=== PATIENT | male | born 1995 | race Hispanic/Latino ===

== ENCOUNTER 2019-03-21 10:33 | Emergency (ER) | payer SELFPAY ==
--- NOTE | 2019-03-21 11:48 | RAD REPORT ---
EXAM DESCRIPTION: RAD - Hand Right 3 View - 03/21/2019 11:40 am CLINICAL HISTORY: Fall, hand pain COMPARISON: None. FINDINGS: Comminuted fracture is present at the distal shaft third metacarpal. Articular surface is not involved. Ventral angulation deformity is present in the distal fracture fragment. No other acute fracture change. There is no dislocation or periosteal reaction noted. Prominent soft tissue swelling over the dorsum of the hand. Small bone fragments are present in the soft tissues bu t no foreign body. IMPRESSION: Comminuted fracture distal third metacarpal with mild ventral angulation deformity.
--- NOTE | 2019-03-21 11:49 | ER ---
Nurse's Notes [facility] Name: Emily Mckeon Age: 23 yrs Sex: Male : 1995 Arrival Date: 03/21/2019 Time: 10:37 Bed 9 Private MD: Diagnosis: Displaced fracture of neck of third metacarpal bone, right hand Presentation: 03/21 10:49 Presenting complaint: Patient states: right hand swelling that began post-fall on aa5 Tuesday. Pt states "I just need a release to go back to work". Transition of care: patient was not received from another setting of care. Onset of symptoms was February 2019. Risk Assessment: Do you want to hurt yourself or someone else? Patient reports no desire to harm self or others. Initial Sepsis Screen: Does the patient meet any 2 criteria? No. Patient's initial sepsis screen is negative. Does the patient have a suspected source of infection? No. Patient's initial sepsis screen is negative. Care prior to arrival: None. 10:49 Acuity: АЛЕКСАНДР 4 aa5 10:49 Method Of Arrival: Ambulatory aa5 Historical: - Allergies: 10:50 No Known Allergies; aa5 - PMHx: 10:50 None; aa5 - PSHx: 10:50 None; aa5 - Immunization history:: Last tetanus immunization: unknown. - Social history:: Smoking status: Patient/guardian denies using tobacco. - Ebola Screening: : No symptoms or risks identified at this time. Screenin:16 Abuse screen: Denies threats or abuse. Denies injuries from another. Nutritional ss screening: No deficits noted. Tuberculosis screening: Never had TB. Fall Risk None identified. Assessment: 11:00 General: Appears in no apparent distress. comfortable. Pain: Complains of pain in right ss middle finger and right hand Pain currently is 7 out of 10 on a pain scale. Neuro: Level of Consciousness is awake, alert, obeys commands, Oriented to person, place, time, situation. Cardiovascular: Pulses are palpable in right radial artery and left radial artery. Respiratory: Respiratory effort is even, unlabored, Respiratory pattern is regular, symmetrical. GI: No signs and/or symptoms were reported involving the gastrointestinal system. EENT: Throat is clear. Derm: Skin is intact, is healthy with good turgor, Skin is dry, Skin is pink, warm \\T\\ dry. normal. Musculoskeletal: Circulation, motion, and sensation intact. Range of motion: intact in all extremities. 12:16 Reassessment: Patient appears in no apparent distress at this time. Patient and/or ss family updated on plan of care and expected duration. Pain level reassessed. Patient is alert, oriented x 3, equal unlabored respirations, skin warm/dry/pink. Vital Signs: 10:50 BP 150 / 89; Pulse 89; Resp 16 S; Temp 98.7(TE); Pulse Ox 98% on R/A; Weight 81.65 kg aa5 (R); Height 5 ft. 7 in. (170.18 cm) (R); Pain 7/10; 10:50 Body Mass Index 28.19 (81.65 kg, 170.18 cm) aa5 ED Course: 10:37 Patient arrived in ED. mr 10:48 Arm band placed on. aa5 10:49 Triage completed. aa5 10:50 [facility]C [facility] kb 10:50 Anibal Hall MD is Attending Physician. kb 11:29 Hand Right 3 View XRAY In Process Unspecified. EDMS 12:00 Chanel Gallegos, YAJAIRA is Primary Nurse. ss 12:05 Orthoglass splint: Volar splint applied on right arm Radial pulse present and within jb1 normal limits before and after application of splint. Capillary refill was one second before and after application of splint. 12:16 Patient has correct armband on for positive identification. Bed in low position. Call ss light in reach. 12:16 No provider procedures requiring assistance completed. Patient did not have IV access ss during this emergency room visit. Administered Medications: 12:03 Drug: Ibuprofen 800 mg Route: PO; ss 12:20 Follow up: Response: No adverse reaction ss Outcome: 11:48 Discharge ordered by . kb 12:16 Discharged to home ambulatory. ss 12:16 Condition: good 12:16 Discharge instructions given to patient, family, Instructed on discharge instructions, follow up and referral plans. medication usage, Demonstrated understanding of instructions, follow-up care, medications. 12:20 Patient left the ED. ss Signatures: Dispatcher [employer] EDMT Ki Bowman jb1 Mallika Pop FNP-C FNP-Ckb Rivera, Mary mr SquiresPaula, RN RN aa5 Chanel Gallegos RN RN ss Corrections: (The following items were deleted from the chart) 10:50 10:50 BP 150 / 89; Pulse 89bpm; Resp 16bpm; Spontaneous; Pulse Ox 98% RA; Temp 98.7F aa5 Temporal; 81.65 kg Reported; Height 5 ft. 7 in. Reported; BMI: 28.1; aa5
--- NOTE | 2019-03-21 11:49 | EDPHYS ---
Physician Documentation [facility] Name: Emily Mckeon Age: 23 yrs Sex: Male : 1995 Arrival Date: 03/21/2019 Time: 10:37 Bed 9 Private MD: ED Physician Anibal Hall HPI: 03/21 11:30 This 23 yrs old Male presents to ER via Ambulatory with complaints of Hand kb Swelling. 11:30 The patient or guardian reports injury, pain, swelling. The complaints affect the right kb hand diffusely. Context: The problem was sustained at home, resulted from a fall. Onset: The symptoms/episode began/occurred 4 day(s) ago. Modifying factors: The symptoms are alleviated by nothing, the symptoms are aggravated by nothing. Associated signs and symptoms: The patient has no apparent associated signs or symptoms. Severity of symptoms: At their worst the symptoms were moderate, in the emergency department the symptoms are unchanged. The patient has not experienced similar symptoms in the past. The patient has not recently seen a physician. Pt reports he fell on Tuesday and injured his right hand. Reports swelling to entire right hand and pain with ROM of middle finger. States he came in because he needs a note to return to work. . Historical: - Allergies: 10:50 No Known Allergies; aa5 - PMHx: 10:50 None; aa5 - PSHx: 10:50 None; aa5 - Immunization history:: Last tetanus immunization: unknown. - Social history:: Smoking status: Patient/guardian denies using tobacco. - Ebola Screening: : No symptoms or risks identified at this time. ROS: 11:29 Constitutional: Negative for fever, chills, and weight loss, Neck: Negative for injury, kb pain, and swelling, Cardiovascular: Negative for chest pain, palpitations, and edema, Respiratory: Negative for shortness of breath, cough, wheezing, and pleuritic chest pain, Abdomen/GI: Negative for abdominal pain, nausea, vomiting, diarrhea, and constipation, Back: Negative for injury and pain, : Negative for injury, bleeding, discharge, and swelling, Skin: Negative for injury, rash, and discoloration, Neuro: Negative for headache, weakness, numbness, tingling, and seizure. 11:29 MS/extremity: Positive for injury or acute deformity, pain, swelling. Exam: 11:29 Constitutional: This is a well developed, well nourished patient who is awake, alert, kb and in no acute distress. Head/Face: Normocephalic, atraumatic. ENT: Nares patent. No nasal discharge, no septal abnormalities noted. Tympanic membranes are normal and external auditory canals are clear. Oropharynx with no redness, swelling, or masses, exudates, or evidence of obstruction, uvula midline. Mucous membranes moist. Neck: Trachea midline, no thyromegaly or masses palpated, and no cervical lymphadenopathy. Supple, full range of motion without nuchal rigidity, or vertebral point tenderness. No Meningismus. Chest/axilla: Normal chest wall appearance and motion. Nontender with no deformity. No lesions are appreciated. Cardiovascular: Regular rate and rhythm with a normal S1 and S2. No gallops, murmurs, or rubs. Normal PMI, no JVD. No pulse deficits. Respiratory: Lungs have equal breath sounds bilaterally, clear to auscultation and percussion. No rales, rhonchi or wheezes noted. No increased work of breathing, no retractions or nasal flaring. Abdomen/GI: Soft, non-tender, with normal bowel sounds. No distension or tympany. No guarding or rebound. No evidence of tenderness throughout. Skin: Warm, dry with normal turgor. Normal color with no rashes, no lesions, and no evidence of cellulitis. Neuro: Awake and alert, GCS 15, oriented to person, place, time, and situation. Cranial nerves II-XII grossly intact. Motor strength 5/5 in all extremities. Sensory grossly intact. Cerebellar exam normal. Normal gait. 11:29 Musculoskeletal/extremity: Extremities: grossly normal except: noted in the right hand: pain, swelling, tenderness, ROM: intact in all extremities, limited active range of motion due to pain, in the right middle finger, Circulation is intact in all extremities. Sensation intact. Vital Signs: 10:50 BP 150 / 89; Pulse 89; Resp 16 S; Temp 98.7(TE); Pulse Ox 98% on R/A; Weight 81.65 kg aa5 (R); Height 5 ft. 7 in. (170.18 cm) (R); Pain 7/10; 10:50 Body Mass Index 28.19 (81.65 kg, 170.18 cm) aa5 MDM: 10:51 Patient medically screened. kb 11:29 Data reviewed: vital signs, nurses notes. Data interpreted: Pulse oximetry: on room air kb is 98 %. Interpretation: normal. 11:47 Counseling: I had a detailed discussion with the patient and/or guardian regarding: the kb historical points, exam findings, and any diagnostic results supporting the discharge/admit diagnosis, radiology results, the need for outpatient follow up, a orthopedic surgeon, to return to the emergency department if symptoms worsen or persist or if there are any questions or concerns that arise at home. 11:49 Test interpretation: by ED physician or midlevel provider: plain radiologic studies, kb displaced fracture third metacarpal. 03/21 11:03 Order name: Hand Right 3 View XRAY; Complete Time: 11:49 kb 03/21 11:41 Order name: Splint; Complete Time: 12:00 kb 03/21 11:42 Order name: Sling; Complete Time: 12:00 kb Administered Medications: 12:03 Drug: Ibuprofen 800 mg Route: PO; ss 12:20 Follow up: Response: No adverse reaction ss Disposition: 03/22 07:23 Co-signature as Attending Physician, Anibal Hall MD I agree with the assessment and anjali plan of care. Disposition: 03/21/19 11:48 Discharged to Home. Impression: Displaced fracture of neck of third metacarpal bone, right hand. - Condition is Stable. - Discharge Instructions: Metacarpal Fracture, [id number]. - Work release form, Medication Reconciliation Form, Thank You Letter, Antibiotic Education, Prescription Opioid Use form. - Follow up: Emergency Department; When: As needed; Reason: Worsening of condition. Follow up: Private Physician; When: 2 - 3 days; Reason: Recheck today's complaints, Continuance of care, Re-evaluation by your physician. Signatures: Dispatcher [employer] Mallika Tee, RISK TECH-C RISK TECH-Anibal Srinivasan MD MD cha Calderon, Audri, RN RN aa5 Chanel Gallegos RN RN ss Corrections: (The following items were deleted from the chart) 03/21 12:20 11:48 03/21/2019 11:48 Discharged to Home. Impression: Displaced fracture of neck of ss third metacarpal bone, right hand. Condition is Stable. Forms are Medication Reconciliation Form, Thank You Letter, Antibiotic Education, Prescription Opioid Use. Follow up: Emergency Department; When: As needed; Reason: Worsening of condition. Follow up: Private Physician; When: 2 - 3 days; Reason: Recheck today's complaints, Continuance of care, Re-evaluation by your physician. kb
[2019-03-21] MEDS ORDERED: IBUPROFEN 400 MG TAB ONE (12:03)
[2019-03-21 12:28] VITALS: BP 150/89; TEMP 98.7; O2SAT 98
== END 2019-03-21 12:20 | disposition home or self-care (01) ==
LOC: ER 10:33
PROC: 2W3CX1Z Immobilization of Right Lower Arm using Splint (ICD-10-PCS; principal; 2019-03-21)
DX: S62.332A Displaced fracture of neck of third metacarpal bone, right hand, initial encounter for closed fracture (principal); W19.XXXA Unspecified fall, initial encounter; Y93.9 Activity, unspecified; Y92.9 Unspecified place or not applicable
CPT/HCPCS: 99283